=== PATIENT | male | born 1980 | race Caucasian/White ===

== ENCOUNTER 2023-01-29 10:31 | Emergency (ER) | payer SELFPAY ==
[~2023-01-29] VITALS: Ht 185.4 cm; Wt 65.8 kg
[2023-01-29 10:34] VITALS: BP 152/83
[2023-01-29] MEDS ORDERED: CARB15DR91 LEFT EAR (13:13)
== END 2023-01-29 13:25 | disposition home or self-care (01) ==
LOC: ER 10:32
DX: H61.22 Impacted cerumen, left ear (principal)
CPT/HCPCS: 69209; 99282

== ENCOUNTER 2023-12-12 16:31 | Emergency (ER) | payer BC ==
[~2023-12-12] VITALS: Ht 185.4 cm; Wt 58.3 kg
[~2023-12-12 16:31] MED LIST: CARB15DR91 LEFT EAR
[2023-12-12 16:56] VITALS: BP 125/95; PULSE 108; TEMP 97.9; O2SAT 100
[2023-12-12 16:58] VITALS: RESP 17
[2023-12-12] MEDS: CefTRIAXone 1000mg IM Kit (w/lidocaine diluent) IM STA (17:10)
[2023-12-12 17:40] LABS: BILIRUBIN,URINE NEGATIVE (Neg); CLARITY,URINE CLEAR (Clear); COLOR,URINE YELLOW (Yellow); GLUCOSE, URINE NEGATIVE (Neg); KETONES,URINE NEGATIVE (Neg); LEUKOCYTE ESTERASE ,URINE NEGATIVE (Neg); NITRITES, URINE NEGATIVE (Neg); OCCULT BLOOD,URINE NEGATIVE (Neg); PH,URINE 5.5 (4.8-8.0); PROTEIN,URINE NEGATIVE (Neg); UROBILINOGEN,URINE 0.2 E.U/dL (0.2-1.0)
[2023-12-12 17:41] LABS: UA COLLECTION TYPE CLN CATCH MIDSTREAM
[2023-12-12] MEDS ORDERED: DOXY-457 PO (17:52)
[2023-12-12] MEDS: DOXYCYCLINE 100MG CAPSULE PO ONE (18:03)
[2023-12-15 09:29] LABS: CHLAMYDIA TRACHOMATIS, NAA Negative (Negative)
== END 2023-12-12 18:22 | disposition home or self-care (01) ==
LOC: ER 16:32
DX: R30.0 Dysuria (principal); R36.9 Urethral discharge, unspecified; Z79.899 Other long term (current) drug therapy; Z79.2 Long term (current) use of antibiotics
CPT/HCPCS: 36415; 81003; 87491; 87591; 96372; 99284; J0696

== ENCOUNTER 2025-01-27 14:35 | Outpatient (CLI) | payer OTHER ==
--- NOTE | 2025-01-27 19:01 | RADIOLOGY REPORT ---
EXAM: CT CT LOWER EXTREMITY INDICATION: PRIMARY OSTEOARTHRITIS, LEFT ANKLE AND FOOT TECHNIQUE: Axial images of left lower extremity have been obtained along with coronal and sagittal re formatted images. All CT scans at this facility use dose modulation, iterative reconstruction, and/or weight based dosing when appropriate to reduce radiation dose to as low as reasonably achievable. COMPARISON: None FINDINGS: BONES: Prior healed distal fibular diaphyseal fracture intramedullary and screw fixation distal tibia . Healed, malunited calcaneal fracture with prior inferior displacement of the calcaneal articular hamm rface along the subtalar joint. Gfco-ex-naml contact of the critical angle of [place]. Persistent sm all coronally oriented fracture plane of the medial aspect of the anterior calcaneus extending into t he anterior subtalar joint MUSCLES: No abnormal attenuation. JOINT SPACES: No joint effusion. TENDONS/LIGAMENTS: Intact. OTHER: None. IMPRESSION: 1. Healed, malunited calcaneal fracture with prior inferior displacement of the calcaneal articular s urface along the subtalar joint. Evbi-bc-gogx contact of the critical angle of [place]. 2. Persistent small coronally oriented fracture plane of the medial aspect of the anterior calcaneus extending into the anterior subtalar joint.
== END 2025-01-27 23:59 | disposition home or self-care (01) ==
LOC: RAD 14:35
PROVIDERS: ATTEND Podiatrist Foot & Ankle Surgery
DX: S92.009A Unspecified fracture of unspecified calcaneus, initial encounter for closed fracture (principal); M79.672 Pain in left foot; M19.072 Primary osteoarthritis, left ankle and foot; M21.6X2 Other acquired deformities of left foot; M21.6X1 Other acquired deformities of right foot; Z72.0 Tobacco use; X58.XXXA Exposure to other specified factors, initial encounter; Y93.89 Activity, other specified; Y92.89 Other specified places as the place of occurrence of the external cause; Y99.8 Other external cause status
CPT/HCPCS: 73700